=== PATIENT | female | born 1980 | race Caucasian/White ===

== ENCOUNTER 2017-10-04 09:20 | Emergency (ER) | payer MEDICAID | END 2017-10-04 12:45 | disposition home or self-care (01) | LOC: FTE 09:20 | DX: M79.644 Pain in right finger(s) (principal); R05 Cough | CPT/HCPCS: 73130; 73130-RT; 99283-25 ==

== ENCOUNTER 2018-02-18 10:43 | Emergency (ER) | payer MEDICAID | END 2018-02-18 13:46 | disposition home or self-care (01) | LOC: FTE 10:43 | DX: N63.10 Unspecified lump in the right breast, unspecified quadrant (principal) | CPT/HCPCS: 76642; 99284-25 ==